=== PATIENT | male | born 2000 | race Caucasian/White ===

== ENCOUNTER 2018-04-28 15:18 | Emergency (ER) | payer OTHER ==
[~2018-04-28] VITALS: Wt 94.3 kg
[~2018-04-28 15:18] MED LIST: Kenalog 0.5% Cr15 GM T; NORCO 5-325 TA1 EACH PO; PENICILLIN VK500 MG PO
== END 2018-04-28 19:08 | disposition home or self-care (01) ==
LOC: ED 15:18
DX: S86.911A Strain of unspecified muscle(s) and tendon(s) at lower leg level, right leg, initial encounter (principal); W18.39XA Other fall on same level, initial encounter; Y93.89 Activity, other specified; Y92.89 Other specified places as the place of occurrence of the external cause; Y99.8 Other external cause status

== ENCOUNTER 2018-06-24 23:31 | Emergency (ER) | payer OTHER ==
[~2018-06-24] VITALS: Ht 172.7 cm; Wt 94.3 kg
--- NOTE | ~2018-06-24 | EKG ---
[place], [place] ELECTROCARDIOGRAM REPORT NAME: LUPIS BELLAMY UNIT #: [id number] ROOM: DOCTOR: EPIPHANY DRAFT REPORT BIRTHDATE: [birth year] [facility] Test Date: 2018-06-24 Test Time: 23:36:02 Pat Name: LUPIS BELLAMY Department: ER Room: Gender: Master Carpenter: Theo Rabago : 2000 Requested By: KAYLA PORRAS Order Number: [id number] Reading MD: Елена Rey MD Measurements Intervals [place] Rate: 77 P: 61 NM: 140 QRS: 70 QRSD: 86 T: 37 QT: 383 QTc: 434 Interpretive Statements Sinus rhythm Electronically Signed On 06-25-2018 9:52:19 PST by Елена Rey MD CM:EKGRPT:ELECTROCARDIOGRAM REPORT [id number] KAYLA VALENCIA DRAFT REPORT KAYLA PORRAS DO
[2018-06-25 00:32] LABS: BASO # 0.1 10*3/uL (0.0-0.1); BASO % 0.7 % (0.0-1.0); EOS # 0.1 10*3/uL (0.0-0.4); EOS % 1.6 % (1.0-4.0); HEMATOCRIT 44.8 % (42.0-52.0); HEMOGLOBIN 15.6 g/dl (14.0-18.0); LYMPH # 2.2 10*3/uL (1.3-4.4); MEAN CELL VOLUME 87.3 fl (80.0-94.0); MEAN CORPUSCULAR HGB 30.4 pg (27.0-31.0); MEAN CORPUSCULAR HGB CONC 34.8 g/dl (33.0-37.0); MEAN PLATELET VOLUME 10.3 fl (9.6-12.3); MONO # 0.5 10*3/uL (0.1-1.0); NEUT # 4.6 10*3/uL (2.3-7.9); NEUT % 61.4 % (47.0-73.0); PLATELET COUNT AUTOMATED 241 10*3/uL (130-400); RED BLOOD COUNT 5.13 10*6/uL (4.50-5.90); RED CELL DISTRI WIDTH 12.4 % (0-14.5); WHITE BLOOD COUNT 7.5 10*3/uL (4.8-10.8)
[2018-06-25 00:56] LABS: ALKALINE PHOSPHATASE 132 U/L (45-117); BUN 9 mg/dl (7-24); CHLORIDE 103 mmol/L (98-107); CREATININE 0.85 mg/dL (0.70-1.30); POTASSIUM 3.3 mmol/L (3.5-5.1); SGOT/AST 22 IU/L (3-35); SGPT/ALT 43 U/L (12-78); SODIUM 138 mmol/L (136-145); TOTAL PROTEIN 8.1 gm/dL (6.4-8.2)
[2018-06-25 01:03] LABS: TROPONIN I < 0.015 ng/ml (<0.045)
[2018-06-25] MEDS ORDERED: NAPROSYN500 MG PO (01:17)
== END 2018-06-25 01:40 | disposition home or self-care (01) ==
LOC: ED 23:31
PROVIDERS: Physician Assistant
DX: R07.89 Other chest pain (principal)

== ENCOUNTER → 2022-07-15 | Outpatient (CLI) | payer OTHER ==
[~2022-07-15] MED LIST changes: +NAPROSYN500 MG PO
[2022-07-15 12:05] LABS: BASO % 0.6 % (0.0-1.0); EOS # 0.1 10*3/uL (0.0-0.4); EOS % 1.3 % (1.0-4.0); HEMATOCRIT 43.2 % (42.0-52.0); LYMPH # 2.2 10*3/uL (1.3-4.4); LYMPH % 32.4 % (27.0-41.0); MEAN CELL VOLUME 89.4 fl (80.0-94.0); MEAN CORPUSCULAR HGB 30.4 pg (27.0-31.0); MEAN PLATELET VOLUME 10.1 fl (9.6-12.3); MONO # 0.5 10*3/uL (0.1-1.0); MONO % 6.8 % (3.0-9.0); NEUT % 58.6 % (47.0-73.0); PLATELET COUNT AUTOMATED 240 10*3/uL (130-400); RED BLOOD COUNT 4.83 10*6/uL (4.50-5.90); RED CELL DISTRI WIDTH 12.4 % (0-14.5); WHITE BLOOD COUNT 6.8 10*3/uL (4.8-10.8)
[2022-07-15 12:48] LABS: ALKALINE PHOSPHATASE 95 U/L (46-116); BUN 8 mg/dl (9-23); CHLORIDE 107 mmol/L (98-107); POTASSIUM 3.9 mmol/L (3.4-5.1); SGPT/ALT 24 U/L (10-49); THYROID STIM HORMONE (HS) 1.023 uIU/ml (0.550-4.780); TOTAL PROTEIN 7.1 gm/dL (6.0-8.0)
[2022-07-15 13:03] LABS: LIPASE 26 U/L (12-53)
[2022-07-16 15:07] LABS: t-TRANSGLUTAMINASE (tTG) IGA <2 U/mL (0-3); t-TRANSGLUTAMINASE (tTG) IgG <2 U/mL (0-5)
== END | disposition home or self-care (01) ==
LOC: LAB 11:27
PROVIDERS: ATTEND Nurse Practitioner Family
DX: I10 Essential (primary) hypertension (principal)

== ENCOUNTER 2022-08-19 13:29 | Emergency (ER) | payer OTHER ==
[~2022-08-19] VITALS: Ht 175.2 cm; Wt 78.0 kg
== END 2022-08-19 15:59 | disposition home or self-care (01) ==
LOC: ED 13:29
DX: K21.9 Gastro-esophageal reflux disease without esophagitis (principal); R07.9 Chest pain, unspecified; F41.9 Anxiety disorder, unspecified